=== PATIENT | female | born 1955 | race Caucasian/White ===

== ENCOUNTER 2019-12-31 09:38 | Emergency (ER) | payer MEDICARE, OTHER ==
[~2019-12-31] VITALS: Ht 154.9 cm; Wt 129.9 kg
[~2019-12-31 09:38] MED LIST: ACET325T14 PO; ATEN50TA41 PO; HYDR25TA6 PO
[2019-12-31 09:49] VITALS: BP 181/96
--- NOTE | 2019-12-31 11:27 | NUR ---
ADULT PROBATION OFFICER: PT AMBULATORY WITH STEADY GAIT TO ROOM AT THIS TIME.
[2019-12-31] MEDS ORDERED: DIPH,PERTUSS(ACELL),TET VAC/PF 0.5 ML IM-VACC ONE ×2 (12:00)
--- NOTE | 2019-12-31 12:12 | NUR ---
L FOOT SOAKED IN SOAPY WARM WATER FOR APPROX 2-4 MINS AND THEN CLEANED AND RINSED. PT TOLERATED WELL.
[2019-12-31] MEDS ORDERED: BACITRACIN ZINC OINT 500U/GM, 0.9 GM TP ONE (13:00)
== END 2019-12-31 13:26 | disposition home or self-care (01) ==
LOC: ED 11:57
DX: S91.202A Unspecified open wound of left great toe with damage to nail, initial encounter (principal); I10 Essential (primary) hypertension; X58.XXXA Exposure to other specified factors, initial encounter; Y93.89 Activity, other specified; Y92.009 Unspecified place in unspecified non-institutional (private) residence as the place of occurrence of the external cause; Y99.8 Other external cause status
CPT/HCPCS: 90471; 90715; 99283